=== PATIENT | female | born 1975 | race Caucasian/White ===

== ENCOUNTER 2018-05-27 01:38 | Inpatient (IN) | payer OTHER ==
[2018-05-27] MEDS ORDERED: HYDROCODONE/APAP (5/325) TAB PO (02:30)
[2018-05-27] MEDS: SOD CHLORIDE 0.9% 1,000 ML IV ×3 (03:09→18:30)
[2018-05-27] MEDS: HYDROCODONE/APAP (5/325) TAB PO ×2 (03:43→08:10)
[2018-05-27] MEDS: morphine 2 MG INJ IV ×4 (04:56→21:00)
[2018-05-27] MEDS ORDERED: VANCOMYCIN IV PER PHARMACY XX (06:00)
[2018-05-27 06:38] LABS: ADD MAN DIFF? NO
[2018-05-27 06:42] LABS: WHITE BLOOD COUNT 8.8 10^3/ul (4.8-10.8)
[2018-05-27 06:42] LABS: BASOPHILS % 0.3 % (0.0-2.0); EOSINOPHILS % 0.1 % (0.0-7.0); HEMATOCRIT 33.3 % (37.0-47.0); HEMOGLOBIN 10.6 g/dl (12.0-16.0); LYMPHOCYTES # 1.4 10^3/ul (0.8-2.9); LYMPHOCYTES % 16.2 % (15.0-51.0); MEAN CORPUSCULAR HEMOGLOBIN 28.1 pg (29.0-33.0); MEAN CORPUSCULAR HGB CONC 31.8 g/dl (32.0-37.0); MEAN CORPUSCULAR VOLUME 88.3 fl (82.0-101.0); MEAN PLATELET VOLUME 9.4 fl (7.4-10.4); MONOCYTE # 1.4 10^3/ul (0.3-0.9); MONOCYTES % 15.5 % (0.0-11.0); NEUTROPHILS % 67.3 % (39.0-77.0); PLATELET COUNT 312 10^3/UL (140-415); RED BLOOD COUNT 3.77 10^6/ul (4.20-5.40); RED CELL DISTRIBUTION WIDTH 13.2 % (11.5-14.5)
[2018-05-27 07:22] LABS: ALANINE AMINOTRANSFERASE 135 IU/L (13-69); ALBUMIN 3.6 g/dl (3.3-4.9); ALBUMIN/GLOBULIN RATIO 1.09; ALKALINE PHOSPHATASE 142 IU/L (42-121); ANION GAP 10 (8-16); ASPARTATE AMINO TRANSFERASE 154 IU/L (15-46); BILIRUBIN,INDIRECT 0.2 mg/dl (0-1.1); BILIRUBIN,TOTAL 0.2 mg/dl (0.2-1.3); BLOOD UREA NITROGEN 7 mg/dl (7-20); CALCIUM 8.1 mg/dl (8.4-10.2); CARBON DIOXIDE 24 mmol/L (21-31); CHLORIDE 106 mmol/L (97-110); CREATININE 0.54 mg/dl (0.44-1.00); GLUCOSE 104 mg/dl (70-220); MAGNESIUM 1.6 mg/dl (1.7-2.5); PHOSPHORUS 2.7 mg/dl (2.5-4.9); POTASSIUM 3.7 mmol/L (3.5-5.1); SODIUM 136 mmol/L (135-144); TOTAL PROTEIN 6.9 g/dl (6.1-8.1)
[2018-05-27] MEDS: VANCOMYCIN 2 GM in SOD CHLORIDE 0.9% 500 ML IVPB (08:09)
[2018-05-27] MEDS: ENOXAPARIN 40 MG/0.4 ML SYG SC (08:11)
[2018-05-27] MEDS: MAGNESIUM SULFATE 2 GM/50 ML 50 ML IVPB (12:51)
[2018-05-27] MEDS: DIPHENHYDRAMINE 25 MG CAP PO (15:59)
[2018-05-27] MEDS: SOD CHLORIDE 0.9% IVPB (16:05)
[2018-05-27] MEDS: DAPTOMYCIN IVPB (16:05)
[2018-05-27] MEDS ORDERED: VANCOMYCIN 1.25 GM in SOD CHLORIDE 0.9% 250 ML IVPB (20:00)
[2018-05-27] MEDS: MAGNESIUM OXIDE 400 MG TAB PO (21:03)
[2018-05-27] MEDS: CIPROFLOXACIN 400MG/D5W 200 ML IVPB (21:04)
[2018-05-27] MEDS: ACETAMINOPHEN 325 MG TAB PO (23:45)
[2018-05-28] MEDS: HYDROCODONE/APAP (5/325) TAB PO ×3 (00:36→21:20)
[2018-05-28] MEDS: SOD CHLORIDE 0.9% 1,000 ML IV ×2 (01:04→12:25)
[2018-05-28] MEDS: MAGNESIUM HYDROXIDE 30ML CUP PO (01:05)
[2018-05-28] MEDS: SENNA TAB PO ×2 (01:05→08:47)
[2018-05-28] MEDS: morphine 2 MG INJ IV ×5 (01:08→22:43)
[2018-05-28 06:49] LABS: ADD MAN DIFF? NO; HAAIG REFLEX REFLEX FILED
[2018-05-28 07:09] LABS: WHITE BLOOD COUNT 7.7 10^3/ul (4.8-10.8)
[2018-05-28 07:09] LABS: BASOPHIL # 0.1 10^3/ul (0.0-0.1); BASOPHILS % 0.6 % (0.0-2.0); EOSINOPHILS # 0.1 10^3/ul (0.0-0.5); EOSINOPHILS % 1.6 % (0.0-7.0); HEMATOCRIT 34.9 % (37.0-47.0); LYMPHOCYTES # 2.8 10^3/ul (0.8-2.9); LYMPHOCYTES % 36.6 % (15.0-51.0); MEAN CORPUSCULAR HEMOGLOBIN 28.3 pg (29.0-33.0); MEAN CORPUSCULAR HGB CONC 31.5 g/dl (32.0-37.0); MEAN CORPUSCULAR VOLUME 89.7 fl (82.0-101.0); MEAN PLATELET VOLUME 9.1 fl (7.4-10.4); MONOCYTES % 13.1 % (0.0-11.0); NEUTROPHIL # 3.7 10^3/ul (1.6-7.5); NEUTROPHILS % 47.7 % (39.0-77.0); PLATELET COUNT 328 10^3/UL (140-415); RED BLOOD COUNT 3.89 10^6/ul (4.20-5.40); RED CELL DISTRIBUTION WIDTH 13.4 % (11.5-14.5)
[2018-05-28 07:10] LABS: ALANINE AMINOTRANSFERASE 104 IU/L (13-69); ALBUMIN 3.7 g/dl (3.3-4.9); ALBUMIN/GLOBULIN RATIO 1.05; ALKALINE PHOSPHATASE 131 IU/L (42-121); ANION GAP 10 (8-16); ASPARTATE AMINO TRANSFERASE 77 IU/L (15-46); BLOOD UREA NITROGEN 7 mg/dl (7-20); CALCIUM 8.4 mg/dl (8.4-10.2); CARBON DIOXIDE 28 mmol/L (21-31); CHLORIDE 105 mmol/L (97-110); CREATININE 0.46 mg/dl (0.44-1.00); GLUCOSE 99 mg/dl (70-220); POTASSIUM 3.8 mmol/L (3.5-5.1); SODIUM 139 mmol/L (135-144); TOTAL PROTEIN 7.2 g/dl (6.1-8.1)
[2018-05-28 07:20] LABS: MAGNESIUM 2.3 mg/dl (1.7-2.5)
[2018-05-28 08:01] LABS: HEPATITIS B SURFACE ANTIGEN NEGATIVE (NEGATIVE)
[2018-05-28 08:19] LABS: HEPATITIS B CORE ANTIBODY NEGATIVE (NEGATIVE); HEPATITIS C VIRAL ANTIBODY NEGATIVE (NEGATIVE)
[2018-05-28 08:37] LABS: HEMOGLOBIN A1C 5.8 % (0-5.9)
[2018-05-28] MEDS: CIPROFLOXACIN 400MG/D5W 200 ML IVPB ×2 (08:47→21:08)
[2018-05-28] MEDS: MAGNESIUM OXIDE 400 MG TAB PO ×2 (08:47→21:08)
[2018-05-28] MEDS: ONDANSETRON 4 MG INJ IV ×2 (08:48→18:07)
[2018-05-28] MEDS: ENOXAPARIN 40 MG/0.4 ML SYG SC (08:54)
[2018-05-28 09:07] LABS: CREATINE KINASE 44 IU/L (23-200)
[2018-05-28] MEDS: DAPTOMYCIN IVPB (15:10)
[2018-05-28] MEDS: SOD CHLORIDE 0.9% IVPB (15:10)
[2018-05-28] MEDS: ACETAMINOPHEN 325 MG TAB PO (15:24)
[2018-05-29] MEDS: SOD CHLORIDE 0.9% 1,000 ML IV ×3 (00:06→09:25)
[2018-05-29] MEDS: HYDROCODONE/APAP (5/325) TAB PO ×2 (03:25→10:47)
[2018-05-29] MEDS: morphine 2 MG INJ IV (06:43)
[2018-05-29] MEDS: ENOXAPARIN 40 MG/0.4 ML SYG SC (09:00)
[2018-05-29] MEDS: CIPROFLOXACIN 400MG/D5W 200 ML IVPB (09:00)
[2018-05-29] MEDS: SENNA TAB PO (09:25)
[2018-05-29] MEDS: MAGNESIUM OXIDE 400 MG TAB PO (09:25)
== END 2018-05-29 14:00 | disposition home or self-care (01) | DRG 872 ==
LOC: PP2 05-29 05:00 → MS4 01:38
DX: A41.9 Sepsis, unspecified organism (principal); Z68.41 Body mass index [BMI] 40.0-44.9, adult; M00.9 Pyogenic arthritis, unspecified; S82.892A Other fracture of left lower leg, initial encounter for closed fracture; E66.01 Morbid (severe) obesity due to excess calories; Z71.3 Dietary counseling and surveillance
CPT/HCPCS: 76705; 80053; 82550; 83036; 83735; 84100; 85025; 86704; 86709; 86803; 87040; 87081; 87340